=== PATIENT | male | born 1985 | race Caucasian/White ===

== ENCOUNTER 2019-06-19 23:30 | Emergency (ER) | payer MEDICAID ==
[~2019-06-19] VITALS: Ht 165.1 cm; Wt 85.4 kg
[2019-06-19 23:33] VITALS: Ht 165.1 cm; Wt 85.4 kg
[2019-06-20 00:25] LABS: BASOPHIL % 0.4 % (0-2); PLATELET COUNT 239 x10^3mcL (130-400); RED CELL DISTRIBUTION WIDTH 13.2 % (11.5-14.5)
[2019-06-20 00:34] LABS: AMPHETAMINE QUAL UR NONE DETECTED (See below)
[2019-06-20 00:34] LABS: CALCIUM 8.8 mg/dL (8.5-10.1); CARBON DIOXIDE 32.1 mmol/L (21-32); CHLORIDE SERUM 103 mmol/L (98-107); CREATININE SERUM 1.1 mg/dL (0.7-1.3); GFR1 > 60 mL/min; GLUCOSE SERUM 123 mg/dL (74-106); POTASSIUM SERUM 4.1 mmol/L (3.5-5.1); SODIUM SERUM 142 mmol/L (136-145)
[2019-06-20 00:39] LABS: ALBUMIN 3.7 g/dL (3.4-5.0); ALKALINE PHOSPHATASE 86 U/L (46-116); ALT/SGPT 56 U/L (16-63); AST/SGOT 25 U/L (15-37); BILIRUBIN TOTAL 0.5 mg/dL (0.20-1.00)
[2019-06-20 01:11] VITALS: BP 128/77
== END 2019-06-20 01:11 | disposition home or self-care (01) ==
LOC: ED 23:30
PROVIDERS: Specialist
DX: R07.89 Other chest pain (principal); R20.0 Anesthesia of skin; R11.0 Nausea
CPT/HCPCS: 36415; J1885; Q0092